=== PATIENT | male | born 1965 | race Caucasian/White ===

== ENCOUNTER → 2023-12-17 12:50 | Outpatient (POV) | payer MEDICARE, SELFPAY ==
[2023-12-17 13:01] VITALS: BP 159/104; PULSE 86; RESP 20; O2SAT 96; BMI 40.7
--- NOTE | 2023-12-17 13:07 | EXP.PAIN.OV ---
HPI Data of Consult Patient: new to practice Consult date: 12/17/23 Requesting Physician: Angelica Iverson APRN Primary Care Provider: Karthikeyan Rebolledo Consult Narrative Reason for consult: Low back pain, bilateral leg pain History of present illness: Mr. Draper is a 58 year old male who presents today as a new patient. He is a referral from Erick Rebolledo's office. Today he rates his pain a 5 out of 10. Patient states his pain is all throughout his low back and radiating into his bilateral lower extremities. He does describe this as a constant aching, throbbing sensation with numbness and tingling and burning sensations into his legs. He states this has been going on for years and progressively worsened over time. He does state the pain is interfering with his ability perform activities of daily living such as cooking and cleaning or even simple ambulation. Patient states he is having more more trouble walking due to the symptoms. He states that he will have weakness into his legs and leg will occasionally give out causing him to fall. 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 Patient has tried [id number] Tylenol along with heat and ice and topicals with minimal relief. Patient has not had any recent physical therapy or chiropractor history. He denies any surgery. Patient does state years ago he was seen in [facility] at the pain management facility who did do injections and that they really did help. Patient denies any new imaging. He does have a heart history with a cardiac stent placed approximately 3 years ago and is on Plavix. Patient does use a cane for help with ambulation. Patient has been prescribed tramadol and gabapentin in the past. His John has been reviewed and is appropriate. CC: Angelica Iverson APRN [facility] Disclaimer: The information contained in this section may have been updated after the patient was seen, as this information can be updated by other users. Medical History (Updated 12/17/23 @ 13:34 by Angelica Iverson APRN) Overactive bladder COPD (chronic obstructive pulmonary disease) PVD (peripheral vascular disease) GERD (gastroesophageal reflux disease) Erectile dysfunction HTN (hypertension) Parkinsons HLD (hyperlipidemia) Depression Peripheral neuropathy Diabetes Surgical History (Updated 12/17/23 @ 13:06 by Laurence Carranza RN) Hx of hernia repair Hx of adenoidectomy Hx of tonsillectomy H/O repair of rotator cuff Hx of esophagogastroduodenoscopy Hx of colonoscopy Family History (Updated 12/17/23 @ 13:23 by Laurence Carranza RN) Other No significant family history Social History (Updated 12/17/23 @ 13:24 by Laurence Carranza RN) Smoking Status: Current every day smoker alcohol intake: never current occupational status: other Travel in the last 8 weeks: None Review of Systems Review of Systems Review of systems:: pertinent systems reviewed and negative unless documented below Review of systems (narrative): Review of Systems: General: No recent weight changes, no fever, no sleep disturbances Respiratory: No cough, no shortness of air, no recurring pulmonary infections Cardiovascular/peripheral vascular: No chest pain, no palpitations, no edema, no shortness of breath Gastrointestinal: No new onset incontinence, normal bowel movements reported Genitourinary: No new onset incontinence Musculoskeletal: Low back pain, bilateral leg pain Psychiatric: [Normal mood/affect] Neurological: [Denies weakness in extremities], [denies balance issues] Meds Home Medications and Allergies Home Medications Medication Instructions Recorded Confirmed Type aspirin 81 mg capsule 81 mg PO DAILY 12/17/23 12/17/23 History atorvastatin 80 mg tablet 80 mg PO DAILY 12/17/23 12/17/23 History clopidogrel 75 mg tablet 75 mg PO DAILY 12/17/23 12/17/23 History cyclobenzaprine 10 mg tablet 10 mg PO TID 12/17/23 12/17/23 History dapagliflozin propanediol 10 mg 10 mg PO DAILY 12/17/23 12/17/23 History tablet (Farxiga) finasteride 5 mg tablet 5 mg PO DAILY 12/17/23 12/17/23 History gemfibrozil 600 mg tablet 600 mg PO BID 12/17/23 12/17/23 History glipizide 10 mg tablet 10 mg PO DAILY 12/17/23 12/17/23 History losartan 50 mg tablet 50 mg PO DAILY 12/17/23 12/17/23 History meloxicam 15 mg tablet 15 mg PO DAILY 12/17/23 12/17/23 History metformin 1,000 mg tablet 1,000 mg PO DAILY 12/17/23 12/17/23 History metoprolol succinate 50 mg 50 mg PO DAILY 12/17/23 12/17/23 History tablet,extended release 24 hr omeprazole 40 mg capsule,delayed 40 mg PO DAILY 12/17/23 12/17/23 History release tamsulosin 0.4 mg capsule (Flomax) 0.4 mg PO DAILY 12/17/23 12/17/23 History New Prescriptions to Start Prescriptions: Allergies Allergy/AdvReac Type Severity Reaction Status Date / Time No Known Allergies Allergy Verified 12/17/23 13:22 Objective Narrative: Physical Exam: General: Alert and oriented x3, no acute distress, pleasant and cooperative Lungs: Respirations even and unlabored, symmetrical chest expansion Eyes: PERRL Musculoskeletal: Flexion and extension of lumbar [spine] somewhat guarded secondary to pain, [antalgic gait noted] Neurological: Speech clear, no gross sensory deficit Assessment and Plan *Assessment and plan (1) Low back pain: Status: Acute Qualifiers: Chronicity: chronic Back pain laterality: bilateral Sciatica presence: without sciatica Qualified Code(s): M54.50 - Low back pain, unspecified; G89.29 - Other chronic pain Category: Medical Code(s): M54.50 - Low back pain, unspecified (2) Lumbar radiculopathy: Status: Acute Category: Medical Code(s): M54.16 - Radiculopathy, lumbar region Plan Patient is experiencing worsening pain in his low back and legs with limited range of motion. I have discussed with patient that he may benefit from lumbar epidural steroid injection. Risk and benefits were discussed with the patient and he would like to proceed forward with this plan of care. I will also order x-ray and MRI without contrast of his lumbar spine. Patient agrees with this plan of care. Patient has tried and failed conservative therapies. We will reach out to his primary care provider to confirm he can stop his Plavix prior to this injection. Patient will be scheduled for a LESI L4-L5 under fluoroscopy. Patient has been instructed to contact the clinic with any concerns before the next appointment. Dr. Alcazar has reviewed this note and agrees with this plan of care. This note was dictated using voice recognition software and make contain errors or omissions.
== END ==
LOC: SC.PAIN 12:53
PROVIDERS: PCP Physician Assistant; Visit Provider Nurse Practitioner Family
DX: M54.50 Low back pain, unspecified (principal); G89.29 Other chronic pain; M54.16 Radiculopathy, lumbar region
CPT/HCPCS: G0463; 99202

== ENCOUNTER 2023-12-17 13:44 | Outpatient (CLI) | payer MEDICARE, SELFPAY ==
--- NOTE | 2023-12-17 | XR_ITS ---
FINAL REPORT CLINICAL HISTORY: LBP COMPARISON: None FINDINGS: 5 views of the lumbar spine were obtained. There is no evidence of fracture or dislocation. Mild and moderate degenerative change is identified. There is facet osteoarthropathy in the lower lumbar spine. The vertebral alignment is normal. Vascular calcifications are identified. IMPRESSION: No acute bony abnormality. Mild degenerative change as described, with lower lumbar facet osteoarthropathy present. Reviewed, Interpreted and Dictated by Sanket Padilla III, MD Transcribed by Bertha Leonard Authenticated and [facility]
== END 2023-12-17 23:59 ==
LOC: RAD 13:48
PROVIDERS: PCP Physician Assistant; Visit Provider Anesthesiology
DX: M54.50 Low back pain, unspecified (principal); M79.604 Pain in right leg; M79.605 Pain in left leg
CPT/HCPCS: 72110; 99202; G0463

== ENCOUNTER 2024-01-16 07:51 | Day surgery (SDC) | payer MEDICARE, MEDICAID, SELFPAY ==
[2024-01-16 08:20] VITALS: BP 156/93; PULSE 97; RESP 16; TEMP 36.6; O2SAT 95; BMI 41.6
[2024-01-16] MEDS: methylPREDNISolone ACETATE 80MG/ML VIAL 80 MG (08:22)
[2024-01-16 08:24] VITALS: BP 149/95; PULSE 93; RESP 18; O2SAT 92
[2024-01-16 08:27] VITALS: BP 149/95; PULSE 86; RESP 18; O2SAT 93
[2024-01-16 08:33] VITALS: BP 150/84; PULSE 84; RESP 18; O2SAT 95
--- NOTE | 2024-01-16 08:43 | EXP.PAIN.PRO ---
Procedure Date: 01/16/24 Time: 08:12 Anesthesiologist:: Guanakito Russell CRNA Complications:: None Pre-procedure Diagnosis:: Degenerative disc lumbar spine multilevels. Lumbar radiculopathy Post-procedure Diagnosis:: Same. Indications for Procedure:: Patient is a very pleasant 58-year-old male comes our clinic today for lumbar epidural steroid injection at the L4-5 level. Patient reports low back pain as well as bilateral hip and leg radicular symptoms. He rates his pain 7/10. Procedure Details:: Procedure: Lumbar epidural steroid injection under fluoroscopy Informed consent was obtained and the risks and benefits of the procedure were explained to the patient. The patient was taken to the procedure room and noninvasive monitors placed, including noninvasive blood pressure cuff and pulse oximeter. The back was viewed using C-arm Fluoroscopy and prepped using Chloraprep as a cleansing solution and the L4-L5 interspace was palpated. Skin and subcutaneous tissues were anesthetized using lidocaine 1.5% and a 25-gauge needle. After this, an 18-gauge Touhy epidural needle was placed into the L4-L5 interspace and advanced using fluoroscopic guidance and loss of resistance to air until the epidural space was encountered. After confirmation of needle placement in the epidural space, with dye, a solution containing normal saline, 3 mL and Depo-Medrol 80 mg were incrementally injected into the lumbar epidural space. The patient tolerated the procedure well with no complications. The patient was observed in the Pain Clinic and then discharged home neurologically intact. Plan and Disposition:: Patient was discharged without incident.
== END 2024-01-16 08:33 | disposition home or self-care (01) ==
LOC: SC.PAINP 07:52
PROVIDERS: PCP Physician Assistant; Visit Provider Nurse Anesthetist, Certified Registered
DX: M51.16 Intervertebral disc disorders with radiculopathy, lumbar region (principal)
CPT/HCPCS: 62323; J1010

== ENCOUNTER 2024-02-06 15:49 | Outpatient (CLI) | payer MEDICARE, MEDICAID, SELFPAY ==
--- NOTE | 2024-02-06 15:54 | MR_ITS ---
FINAL REPORT TECHNIQUE: Multiplanar MR without contrast CLINICAL HISTORY: LBP COMPARISON: None FINDINGS: There is a transitional vertebra at the lumbosacral junction references S1 for counting purposes. There is well-developed disc at the S1-2 level. Sagittal images show normal vertebral height. Alignment is normal. Marrow signal pattern is unremarkable. L1-2: Unremarkable L2-3: Unremarkable L3-4: Mild annular disc bulge. Borderline canal stenosis, partially congenital. L4-5: Mild annular disc bulge. Moderate facet arthropathy. Mild central canal stenosis. Mild bilateral neuroforaminal narrowing. L5-S1: Severe facet arthropathy. Minimal annular disc bulge. Mild canal stenosis. Moderate bilateral neuroforaminal narrowing. IMPRESSION: Canal stenosis and neuroforaminal narrowing most pronounced at L5-S1. Reviewed, Interpreted and Dictated by Adam Goss MD Transcribed by Breanna Rae Authenticated and [facility]
== END 2024-02-06 23:59 | disposition home or self-care (01) ==
LOC: RAD 15:50
PROVIDERS: PCP Physician Assistant; Visit Provider Nurse Practitioner Family
DX: M54.50 Low back pain, unspecified (principal); M79.661 Pain in right lower leg; M79.662 Pain in left lower leg
CPT/HCPCS: 72148; 76376

== ENCOUNTER 2024-02-09 09:50 | Outpatient (POV) | payer MEDICARE, MEDICAID, SELFPAY ==
--- NOTE | 2024-02-09 10:01 | A.OFFVIS_ITS ---
[facility] Pain Management SOAP Note Subjective:: Patient is a pleasant 58-year-old male who presents today for follow-up of lumbar epidural steroid injection L4-L5 on 01/16/2024. Today he rates his pain an 5 out of 10. Patient states he has had at least 50% improvement following this injection and feels like it still helping. Patient states he has been able to do increased activity with overall decreased pain and feels more functional. Patient does state that he still has some pain when he goes to bend over. Patient does also state that the car ride over here aggravated his symptoms a little bit. Patient does have a seizure history and has neuropathy in his lower extremities. His John has been reviewed and is appropriate. Review of Systems: General: No recent weight changes, no fever, no sleep disturbances Respiratory: No cough, no shortness of air, no recurring pulmonary infections Cardiovascular/peripheral vascular: No chest pain, no palpitations, no edema, no shortness of breath Gastrointestinal: No new onset incontinence, normal bowel movements reported Genitourinary: No new onset incontinence Musculoskeletal: Low back pain Psychiatric: [Normal mood/affect] Neurological: [Denies weakness in extremities], [denies balance issues] Objective:: Physical Exam: General: Alert and oriented x3, no acute distress, pleasant and cooperative Lungs: Respirations even and unlabored, symmetrical chest expansion Eyes: PERRL Musculoskeletal: Flexion and extension of lumbar [spine] somewhat guarded secondary to pain, [antalgic gait noted] Neurological: Speech clear, no gross sensory deficit Assessment:: Degenerative disc disease of lumbar spine with lumbar radiculopathy symptoms Plan:: Patient has had more than 50% relief following his lumbar epidural and does not require any additional injection therapy at this time. Patient will return to clinic in 1 month for reevaluation of symptoms and plan of care. Patient has been instructed to contact the clinic with any concerns before the next appointment. Dr. Alcazar has reviewed this note and agrees with this plan of care. This note was dictated using voice recognition software and make contain errors or omissions. [facility] Disclaimer: The information contained in this section may have been updated after the pat ient was seen, as this information can be updated by other users. Medical History Overactive bladder COPD (chronic obstructive pulmonary disease) PVD (peripheral vascular disease) GERD (gastroesophageal reflux disease) Erectile dysfunction HTN (hypertension) Parkinsons HLD (hyperlipidemia) Depression Peripheral neuropathy Diabetes Surgical History Hx of hernia repair Hx of adenoidectomy Hx of tonsillectomy H/O repair of rotator cuff Hx of esophagogastroduodenoscopy Hx of colonoscopy Family History Other No significant family history Social History Smoking Status: Current every day smoker alcohol intake: never current occupational status: other Travel in the last 8 weeks: None
[2024-02-09 10:41] VITALS: BP 148/88; PULSE 102; RESP 18; TEMP 36.7; O2SAT 98; BMI 42.1
== END 2024-02-09 23:59 | disposition home or self-care (01) ==
LOC: SC.PAIN 09:51
PROVIDERS: PCP Physician Assistant; Visit Provider Nurse Practitioner Family
DX: M51.16 Intervertebral disc disorders with radiculopathy, lumbar region (principal)
CPT/HCPCS: 99212; G0463